=== PATIENT | female | born 1995 | race African-American/Black ===

== ENCOUNTER 2017-06-12 05:44 | Emergency (ER) | payer SELFPAY ==
[2017-06-12 05:47] VITALS: BP 162/90; PULSE 84; RESP 18; TEMP 97.8; O2SAT 99
--- NOTE | 2017-06-12 06:06 | PD ---
HPI Chief Complaint: Cold / Flu Symptoms Time Seen by Provider: 05:55 Travel History International Travel<30 days: No Contact w/Intl Traveler<30days: No Traveled to known affect area: No History of Present Illness HPI 22-year-old female presents to emergency department with a 2 day history of fever, sore throat, congestion and slight cough. Positive malaise. She denies any nausea vomiting. No abdominal pain or diarrhea. No dysuria or frequency. Last period was the 16th of last month. She does not smoke or drink. Symptoms are mild-moderate. No alleviating symptoms. Exacerbated by cough. COUNTS INCLUDE 234 BEDS AT THE [facility] Past Medical History Medical History: Denies Significant Hx ?: Unknown LMP: 05/08/17 Past Surgical History Surgical History: No Previous Surgery Social History Alcohol Use: No Tobacco Use: No Substance Use: No Allergies-Medications (Allergen,Severity, Reaction): Coded Allergies: ibuprofen (Verified Adverse Reaction, Intermediate, hives, 06/12/17) Reported Meds & Prescriptions Reported Meds & Active Scripts Active No Active Prescriptions or Reported Medications Review of Systems Except as stated in HPI: all other systems reviewed are Neg Physical Exam Narrative GENERAL: Well-developed, well-nourished in no acute distress. Nontoxic appearing. HEAD: Normocephalic, atraumatic. EYES: Pupils equal round and reactive. Extraocular motions intact. No scleral icterus. No injection or drainage. ENT: TMs clear without erythema. The external auditory canals clear. Nose: clear . Posterior pharynx is erythematous and moist. Mild tonsillar edema but no exudate. Uvula midline. Airway patent. NECK: Trachea midline.Supple, nontender, moves head freely. No central bony tenderness or spasm. CARDIOVASCULAR: Regular rate and rhythm without murmurs, gallops, or rubs. RESPIRATORY: Clear to auscultation. Breath sounds equal bilaterally. No wheezes , rales, or rhonchi. GASTROINTESTINAL: Abdomen soft, non-tender, nondistended. No hepato-splenomegaly , or palpable masses. No guarding. EXTREMITIES: No clubbing, cyanosis, or edema. No joint tenderness, effusion, or edema noted. BACK: Nontender without deformity or crepitance. No flank tenderness. Data Data Last Documented VS Vital Signs Date Time Temp Pulse Resp B/P (MAP) Pulse Ox O2 Delivery O2 Flow Rate FiO2 06/12/17 05:47 97.8 84 18 162/90 (114) 99 Orders Orders Ed Urine Pregnancytest Poc (06/12/17 06:02) MDM Medical Decision Making Medical Screen Exam Complete: Yes Emergency Medical Condition: Yes Medical Record Reviewed: Yes Interpretation(s) HCG: Negative Differential Diagnosis MDM: High Differential diagnoses: Strep throat, viral pharyngitis, mono, URI Narrative Course Patient's hCG is negative This is pharyngitis Diagnosis Primary Impression: Acute pharyngitis Qualified Codes: J02.9 - Acute pharyngitis, unspecified Patient Instructions: General Instructions Additional Instructions: Rest. Force fluids. Saltwater gargles. Tylenol. Chloraseptic [place] Cepastat lozenge. Amoxicillin. Follow-up with a primary care doctor in one week. Return to the ER if any problems. Med/Other Pt SpecificInfo: Prescription(s) given Scripts No Active Prescriptions or Reported Meds Disposition: 01 DISCHARGE HOME Condition: Stable Juanito Jefferson Jun 12, 2017 06:06
[2017-06-12] MEDS ORDERED: AMOX500T PO (06:07)
== END 2017-06-12 06:25 | disposition home or self-care (01) ==
LOC: NEPD 05:44
DX: J02.9 Acute pharyngitis, unspecified (principal); R09.81 Nasal congestion; R05 Cough; Z88.6 Allergy status to analgesic agent
CPT/HCPCS: 84703; 99282

== ENCOUNTER 2017-09-13 12:30 | Emergency (ER) | payer SELFPAY ==
[~2017-09-13] VITALS: Ht 149.9 cm; Wt 100.0 kg
[~2017-09-13 12:30] MED LIST: AMOX500T PO
[2017-09-13 12:33] VITALS: BP 204/97; PULSE 110; RESP 16; TEMP 98.4; O2SAT 98
[2017-09-13] MEDS ORDERED: BACT800T5 PO (13:32)
[2017-09-13] MEDS ORDERED: TRAM50TA PO (13:32)
[2017-09-13] MEDS ORDERED: CEPH-460 PO (13:32)
--- NOTE | 2017-09-13 13:33 | PD ---
HPI Chief Complaint: Skin Problem Time Seen by Provider: 13:15 Travel History International Travel<30 days: No Contact w/Intl Traveler<30days: No Traveled to known affect area: No History of Present Illness HPI 22-year-old female presents to the emergency department for evaluation of a possible spider bite to her left thigh. Patient states she first noticed it 3 days ago. It is more painful with walking. Current pain is 8/10 without radiation. No fevers or chills. She has no chronic medical problems and takes no prescribed medications. She denies any chance of . No exacerbating or alleviating factors. Moderate severity. PFSH Past Medical History ?: Not LMP: 08/08/17 Social History Alcohol Use: No Tobacco Use: No Substance Use: No Allergies-Medications (Allergen,Severity, Reaction): Coded Allergies: ibuprofen (Verified Adverse Reaction, Intermediate, hives, 06/12/17) Reported Meds & Prescriptions Reported Meds & Active Scripts Active Amoxicillin 500 Mg Tab 500 Mg PO TID 10 Days Review of Systems Except as stated in HPI: all other systems reviewed are Neg Physical Exam Narrative GENERAL: Well-nourished, well-developed female patient, afebrile. SKIN: Focused skin assessment warm/dry. Patient is approximately 5 cm x 5 cm area of erythema to the left lateral thigh. There is a small amount of induration, but no fluctuance or evidence of abscess formation. No active drainage. HEAD: Normocephalic. Atraumatic. EYES: No scleral icterus. No injection or drainage. NECK: Supple, trachea midline. No JVD or lymphadenopathy. CARDIOVASCULAR: Regular rate and rhythm without murmurs, gallops, or rubs. RESPIRATORY: Breath sounds equal bilaterally. No accessory muscle use. Lungs sounds are clear to auscultation. MUSCULOSKELETAL: No cyanosis, or edema. Data Data Last Documented VS Vital Signs Date Time Temp Pulse Resp B/P (MAP) Pulse Ox O2 Delivery O2 Flow Rate FiO2 09/13/17 12:33 98.4 110 16 204/97 (132) 98 MDM Medical Decision Making Medical Screen Exam Complete: Yes Emergency Medical Condition: Yes Medical Record Reviewed: Yes Differential Diagnosis Cellulitis versus abscess versus cyst Narrative Course 22-year-old female presents to the emergency department for evaluation of skin infection to her left lateral thigh. No evidence of abscess formation on exam. She is instructed to do warm, moist compresses and if it comes to head to return for I&D. Patient will be started on Bactrim and Keflex for cellulitis. Patient is allergic ibuprofen. She'll be discharged short-term prescription for tramadol for pain. She is instructed to follow-up with a primary care physician or return here for any acute worsening of symptoms. Patient was noted to be hypertensive and tachycardic in triage. A rechecked these vitals myself and her blood pressure is 130/86 with a heart rate of 70. The patient was discharged in stable condition with instructions, including return instructions and follow up instructions. Diagnosis Primary Impression: Cellulitis Qualified Codes: L03.116 - Cellulitis of left lower limb Referrals: Primary Care Physician call for appointment Patient Instructions: Cellulitis (ED), General Instructions Departure Forms: Tests/Procedures, Work Release Enter return to work date: Sep 15, 2017 Additional Instructions: Take antibiotics as directed until gone. Clean twice daily with soap and water. Apply [id number] antibiotic ointment. Warm, moist compresses 4-5 times daily. Take tramadol as directed as needed for pain. Follow-up with your primary care physician. Return to the emergency department for any acute worsening of symptoms. Med/Other Pt SpecificInfo: Prescription(s) given Scripts Tramadol (Tramadol) 50 Mg Tab 50 MG PO Q8H Y for PAIN, #9 TAB 0 Refills Prov: Tiffany Antonio 09/13/17 Cephalexin (Keflex) 500 Mg Capsule 500 MG PO Q6H for Infection for 10 Days, #40 CAP 0 Refills Prov: Tiffany Antonio 09/13/17 Sulfamethoxazole-Trimethoprim (Bactrim DS) 800-160 Mg Tab 1 TAB PO BID for Infection, #20 TAB 0 Refills Prov: Tiffany Antonio 09/13/17 Disposition: 01 DISCHARGE HOME Condition: Stable Tiffany Antonio Sep 13, 2017 13:33
[2017-09-13 13:35] VITALS: BP 130/86; PULSE 70; RESP 18; O2SAT 99
== END 2017-09-13 13:47 | disposition home or self-care (01) ==
LOC: NEPK 12:30
DX: L03.116 Cellulitis of left lower limb (principal)
CPT/HCPCS: 99283